=== PATIENT | male | born 1995 | race Caucasian/White ===

== ENCOUNTER 2018-10-16 00:50 | Emergency (ER) | payer BC ==
[~2018-10-16] VITALS: Ht 172.7 cm; Wt 90.7 kg
[2018-10-16 00:50] VITALS: BP 104/68
[2018-10-16] MEDS ORDERED: ONDANSETRON 4 MG/2 ML VIAL IVP ONE (01:10)
[2018-10-16] MEDS ORDERED: NACL 0.9% 1,000 ML IV ONE (01:10)
[2018-10-16] MEDS ORDERED: ONDANSETRON 4 MG/2 ML VIAL ONE (01:16)
[2018-10-16 02:53] VITALS: BP 110/72
== END 2018-10-16 02:53 | disposition home or self-care (01) ==
LOC: MED 00:50
DX: F12.129 Cannabis abuse with intoxication, unspecified (principal); J45.909 Unspecified asthma, uncomplicated
CPT/HCPCS: 36415; 96361; 96374; 99283; G0482; J2405; J7030